=== PATIENT | male | born 1940 | race Caucasian/White ===

== ENCOUNTER 2021-11-12 12:33 | Inpatient (IN) | payer MEDICARE, OTHER ==
[~2021-11-12] VITALS: Ht 175.3 cm; Wt 100.7 kg
--- NOTE | 2021-11-12 13:16 | NUR ---
Gave pt lunch tray.
[2021-11-12] MEDS ORDERED: SIMV-49 PO (13:21)
[2021-11-12] MEDS ORDERED: RAMI10CA69 PO (13:21)
[2021-11-12] MEDS ORDERED: KETO45GE2 TP (13:21)
[2021-11-12] MEDS ORDERED: METO-356 PO (13:21)
[2021-11-12] MEDS ORDERED: FINA5TAB11 PO (13:21)
[2021-11-12] MEDS ORDERED: FURO-152 PO (13:21)
[2021-11-12] MEDS ORDERED: CLOP75TA15 PO (13:21)
[2021-11-12] MEDS ORDERED: ASCO250T23 PO (13:23)
--- NOTE | 2021-11-12 15:25 | NUR ---
Report called to JESSICA RN Addendum: 11/12/21 at 1530 by YO AURA Lynne
[2021-11-12] MEDS ORDERED: ACETAMINOPHEN 325 MG TABLET PO PRN (16:30)
[2021-11-12] MEDS ORDERED: MAG HYDROX/AL HYDROX/SIMETH 30 ML LIQUID UDC PO PRN (16:30)
[2021-11-12 16:42] VITALS: BP 141/90
--- NOTE | 2021-11-12 18:15 | NUR ---
GPS: PT ADMITTED TO THE UNIT, PLEASANT 81 YEAR OLD MALE. 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 PT FEARFUL TO BE HOME ALONE. PT IS DEPRESSED WITH FLAT AFFECT. IMPAIRED JUDGEMENT AND INSIGHT AND POOR IMPULSE CONTROL. UNABLE TO PROVIDE FOR HIS FOOD, HALFWAY AND CLOTHING DUE TO MENTAL DISORDER. UPON FACE TO FACE ASSESSMENT, PT IS ALERT AND ORIENTED X2-3, SKIN INTACT, ON FULL CODE AND NO KNOWN DRUG ALLERGY. PT WITH HISTORY OF HYPERTENSION, HYPERLIPIDEMIA, BPH AND ANXIETY. . PT 72 HR HOLD WILL BE EXPIRING ON 11/15 AT 1345. COVID NEGATIVE CHECK AT ER. PT HAD COVID VACCINE CARD ON SAFE AND HAD BEEN FULLY VACCINATED. PT DENIES PAIN OR DISCOMFORT. PT IS ADMITTED TO THE CARE OF DR CALLOWAY (PSYCHIATRIST) AND DR LANCASTER (STIFF STRAW HAT WASHER). ALL MD'S MADE AWARE. PT DENIES ANY SI/HI. ALL VALUABLES ACCOUNTED FOR AND PLACED IN SAFE.
[2021-11-12] MEDS: FUROSEMIDE 20 MG TABLET PO SCH (18:28)
[2021-11-12] MEDS: LORAZEPAM 0.5 MG TABLET PO PRN (18:32)
--- NOTE | 2021-11-12 19:27 | NUR ---
GPS: UPON BODY ASSESSMENT, PT HAVE NOTED WITH EDEMA ON BOTH LOWER EXTREMITIES. LEFT AND RIGHT FOOT AND TOES REDNESS, WOULD BE BENEFICIAL FOR A WOUND OR PODIATRY CONSULT TO RULE OUT CIRCULATION ISSUES. WILL ORDER CONSULT FOR PT. Addendum: 11/12/21 at 1934 by FRANCISCO JUAN RN REPORTED TO RESPIRATORY CARE PRACTITIONER REGARDING BOTH LOWER EXTREMITIES ISSUE, WILL WAIT FOR ORDER.
[2021-11-12 20:05] VITALS: BP 112/75
[2021-11-12] MEDS: SIMVASTATIN 40 MG TABLET PO SCH (20:46)
[2021-11-12] MEDS: TEMAZEPAM 7.5 MG CAPSULE PO PRN (20:55)
--- NOTE | 2021-11-13 06:20 | NUR ---
GPS: Pt.slept 7.30 last night. Anxious,confused,disoriented and needing frequent re-assurance and re-direction from staff. Reality re-orientation provided prn. Poor insight to present situation. Safe environment provided. Needs attended. Will continue to monitor.
[2021-11-13] MEDS: LORAZEPAM 0.5 MG TABLET PO PRN ×2 (06:26→17:27)
[2021-11-13 07:30] VITALS: BP 140/70
[2021-11-13 07:39] LABS: HEMATOCRIT 45.8 % (36.7-47.1); MEAN CORPUSCULAR HEMOGLOBIN 31.7 uug (23.8-33.4); MEAN CORPUSCULAR VOLUME 92.6 fL (73.0-96.2); PLATELET COUNT (AUTO) 210 K/uL (152-348)
[2021-11-13 08:21] LABS: THYROID STIMULATING HORMONE 1.03 mIU/mL (0.358-3.740)
[2021-11-13 08:27] LABS: BILIRUBIN,TOTAL 0.7 mg/dL (0.2-1.0); CREATININE 1.1 mg/dL (0.6-1.3); MAGNESIUM 2.4 mg/dL (1.8-2.4); PHOSPHOROUS 3.2 mg/dL (2.5-4.9)
[2021-11-13] MEDS: FINASTERIDE 5 MG TABLET PO SCH (08:35)
[2021-11-13] MEDS: FUROSEMIDE 20 MG TABLET PO SCH ×2 (08:35→17:27)
[2021-11-13] MEDS: ASCORBIC ACID 500 MG TABLET PO SCH (08:35)
[2021-11-13] MEDS: CLOPIDOGREL 75 MG TABLET PO SCH (08:35)
[2021-11-13] MEDS: RAMIPRIL 5 MG CAPSULE PO SCH (08:36)
[2021-11-13] MEDS: METOPROLOL SUCCINATE XL 25 MG TAB.SR.24H PO SCH (08:42)
[2021-11-13] MEDS ORDERED: ASCORBIC ACID 250 MG PO SCH (09:00)
--- NOTE | 2021-11-13 09:34 | NUR ---
GPS: PT SEEN IN THE ROOM, ALERT, BUT CONFUSED AND FORGETFUL. PT STATING "WHY AM I HERE?" RE-ORIENTED TO WHAT BROUGHT HIM HERE. COMPLIANT WITH MEDS ANC CARE. NO AGITATION OR ANXIOUSNESS NOTED AT THIS TIME.
[2021-11-13 16:00] VITALS: BP 129/68
[2021-11-13] MEDS: MAGNESIUM HYDROXIDE 30 ML LIQUID UDC PO PRN (17:46)
--- NOTE | 2021-11-13 17:51 | NUR ---
GPS: PT REQUESTED FOR AN ATIVAN, PT FEELS ANXIOUS WHILE IN THE TV ROOM WHEN ONE OF THE PT WAS BEING INTRUSIVE AND KEEP ON CLOSING THE DOOR. PT ALSO COMPLAINT OF HAVING A HARD TIME WITH BOWEL MOVEMENT, OFFERED MILK OF MAGNESIA AND TOLERATED WELL.
[2021-11-13 19:51] VITALS: BP 136/71
[2021-11-13] MEDS: SIMVASTATIN 40 MG TABLET PO SCH (20:02)
[2021-11-13] MEDS: risperiDONE 0.25 MG TABLET PO SCH (20:10)
[2021-11-13] MEDS: TEMAZEPAM 7.5 MG CAPSULE PO PRN (21:47)
[2021-11-14 07:30] VITALS: BP 161/74
[2021-11-14] MEDS: FUROSEMIDE 20 MG TABLET PO SCH ×2 (08:43→16:45)
[2021-11-14] MEDS: METOPROLOL SUCCINATE XL 25 MG TAB.SR.24H PO SCH (08:43)
[2021-11-14] MEDS: CLOPIDOGREL 75 MG TABLET PO SCH (08:43)
[2021-11-14] MEDS: risperiDONE 0.25 MG TABLET PO SCH (08:43)
[2021-11-14] MEDS: ASCORBIC ACID 500 MG TABLET PO SCH (08:43)
[2021-11-14] MEDS: FINASTERIDE 5 MG TABLET PO SCH (08:43)
[2021-11-14] MEDS: RAMIPRIL 5 MG CAPSULE PO SCH (08:44)
[2021-11-14] MEDS: DIVALPROEX 250 MG TABLET.DR PO SCH ×2 (09:22→20:58)
[2021-11-14] MEDS: LORAZEPAM 0.5 MG TABLET PO PRN ×2 (11:24→20:58)
--- NOTE | 2021-11-14 11:26 | NUR ---
GPS: PT ALERT AND VERBALLY RESPONSIVE BUT VERY CONFUSED DURING THE EARLY SHIFT. PT DOES NOT KNOW WHY HE IS HERE, AND WHY HIS CELLPHONE AND WALLET IS NOT WITH HIM. PT RE-ORIENTED WITH THE PLACE AND SITUATION THAT HE"S IN THE LOCKED-IN FACILITY. PT ATTENDED GROUP THERAPY AND ENJOYED SOME ACTIVITIES AT THE [facility]IO. PT HAD EPISODE OF ANXIOUSNESS AND REQUESTED FOR ATIVAN, GIVEN AND TOLERATED WELL. COMPLIANT WITH MEDS. WILL ENCOURAGE THE PT TO TAKE A SHOWER TODAY.
--- NOTE | 2021-11-14 11:47 | NUR ---
GPS: AT AROUND 1000, PT WAS NOT ABLE TO HAVE A CT-SCAN PT WAS CLAUSTROPHIC AND DOES NOT WANT TO RIDE THE ELEVATOR. OFFERED ATIVAN, PT STATED "IT WON'T WORK.
[2021-11-14] MEDS: risperiDONE 0.5 MG TABLET PO SCH ×2 (12:33→16:45)
[2021-11-14] MEDS ORDERED: risperiDONE 0.25 MG TABLET PO SCH (13:00)
--- NOTE | 2021-11-14 14:16 | NUR ---
AMBER Initial Discharge Note: Pt currently resides at [address] [place] [address]. AMBER will continue to work with pt, family and MD to ensure a safe and proper discharge plan. Pt is agreeable to a penitentiary facility placement upon discharge. AMBER will continue to communicate with family regarding pt's status and discharge plan.
[2021-11-14 16:00] VITALS: BP 132/69
[2021-11-14 20:39] VITALS: BP 133/71
[2021-11-14] MEDS: SIMVASTATIN 40 MG TABLET PO SCH (20:58)
[2021-11-14] MEDS: TEMAZEPAM 7.5 MG CAPSULE PO PRN (21:30)
--- NOTE | 2021-11-15 04:42 | NUR ---
GPS NOTES: Received in the day room watching tv, A&0x2, pleasant when greeted. Compliant with medication, able to make needs known. Noted with forgetfulness. Patient states to have anxiety, PRN ativan given. Restoril given as per patient requests. Patient sleeping intermittently. Closely monitoring observed.
[2021-11-15 07:30] VITALS: BP 133/83
[2021-11-15] MEDS: METOPROLOL SUCCINATE XL 25 MG TAB.SR.24H PO SCH (08:19)
[2021-11-15] MEDS: FUROSEMIDE 20 MG TABLET PO SCH ×2 (08:19→16:50)
[2021-11-15] MEDS: CLOPIDOGREL 75 MG TABLET PO SCH (08:19)
[2021-11-15] MEDS: ASCORBIC ACID 500 MG TABLET PO SCH (08:20)
[2021-11-15] MEDS: DIVALPROEX 250 MG TABLET.DR PO SCH ×3 (08:20→20:03)
[2021-11-15] MEDS: FINASTERIDE 5 MG TABLET PO SCH (08:20)
[2021-11-15] MEDS: RAMIPRIL 5 MG CAPSULE PO SCH (08:24)
[2021-11-15] MEDS: risperiDONE 0.5 MG TABLET PO SCH ×3 (08:30→16:50)
--- NOTE | 2021-11-15 10:03 | NUR ---
WOUND CARE CONSULT: PT SEEN FOR DRY SKIN TO LOWER LEGS AND SOME REDDISH DISCOLORATION TO FEET AND LOWER LEGS. DEFER TO PMD FOR DISCOLORATION. RECOMMENDATIONS MADE FOR SKIN DRYNESS. DISCUSSED WITH NURSING STAFF.MD IN AGREEMENT WITH PLAN OF CARE. PT IS AMBULATORY AND CONTINENT.
[2021-11-15] MEDS: MINERAL OIL/PETROLATUM,WHITE 57 GM TUBE TOP SCH (11:11)
--- NOTE | 2021-11-15 15:02 | NUR ---
Received patient sleeping in his room. A/O X 2 to person, place. Pt. is confused and forgetful "Can you please tell me what should I be doing?" Pt. is demanding, worried, and needs to be redirected. Cooperative with care and compliant with medications. Pt. is encourage to verbalize concerns. Fall and safety precautions implemented.
--- NOTE | 2021-11-15 15:25 | NUR ---
Firearms Report: Claims Adjuster Supervisor completed and submitted a [employer] firearms report for 5150 grave disability certifications. A copy of report has been placed in patient chart.
--- NOTE | 2021-11-15 16:15 | NUR ---
AMBER Family Contact: Pt's sister contacted AMBER and discussed pt's current status and discharge plan to [facility]. Pt's sister is aware and agreeable. AMBER stated this life insurance underwriter will contact pt's son, Mike and discuss the discharge plan with him next week.
[2021-11-15 16:32] VITALS: BP 147/83
[2021-11-15] MEDS: SIMVASTATIN 40 MG TABLET PO SCH (20:03)
[2021-11-15 20:10] VITALS: BP 123/78
[2021-11-15] MEDS: TEMAZEPAM 7.5 MG CAPSULE PO PRN (23:39)
--- NOTE | 2021-11-16 06:11 | NUR ---
GPS: Pt.slept 5.45 last night. Remains confused,forgetful and anxious at times. Re-assured and re-directed prn. Safety emphasized. Will continue to monitor.
[2021-11-16 07:30] VITALS: BP 162/84
[2021-11-16] MEDS: RAMIPRIL 5 MG CAPSULE PO SCH (08:28)
[2021-11-16] MEDS: risperiDONE 0.5 MG TABLET PO SCH ×3 (08:29→17:17)
[2021-11-16] MEDS: METOPROLOL SUCCINATE XL 25 MG TAB.SR.24H PO SCH (08:29)
[2021-11-16] MEDS: ASCORBIC ACID 500 MG TABLET PO SCH (08:29)
[2021-11-16] MEDS: FUROSEMIDE 20 MG TABLET PO SCH ×2 (08:29→17:17)
[2021-11-16] MEDS: CLOPIDOGREL 75 MG TABLET PO SCH (08:30)
[2021-11-16] MEDS: DIVALPROEX 250 MG TABLET.DR PO SCH ×3 (08:30→20:20)
[2021-11-16] MEDS: FINASTERIDE 5 MG TABLET PO SCH (08:30)
[2021-11-16] MEDS: MINERAL OIL/PETROLATUM,WHITE 57 GM TUBE TOP SCH (08:31)
[2021-11-16] MEDS ORDERED: MIRALAX 17 GM POWD.PACK PO ONE (14:00)
[2021-11-16] MEDS: LORAZEPAM 0.5 MG TABLET PO PRN (14:11)
--- NOTE | 2021-11-16 14:13 | NUR ---
Patient is given Miralax for constipation at 14:08, and Ativan 0.5 mg for anxiety at 14:10, will be monitored for effectiveness.
--- NOTE | 2021-11-16 14:59 | NUR ---
Received patient sleeping in his room. A/O X 2 to person, place. Pt. is sociable, pleasant, forgetful "Please don't let me miss any meals" "Where should I go now?" Pt. is compliant with medications. Pt. is encourage to verbalize concerns. Fall and safety precautions implemented.
[2021-11-16 16:07] VITALS: BP 132/73
[2021-11-16 19:53] VITALS: BP 117/56
[2021-11-16] MEDS: SIMVASTATIN 40 MG TABLET PO SCH (20:20)
[2021-11-17] MEDS: MAGNESIUM HYDROXIDE 30 ML LIQUID UDC PO PRN (06:44)
[2021-11-17 07:30] VITALS: BP 130/60
[2021-11-17] MEDS: RAMIPRIL 5 MG CAPSULE PO SCH (08:16)
[2021-11-17] MEDS: METOPROLOL SUCCINATE XL 25 MG TAB.SR.24H PO SCH (08:16)
[2021-11-17] MEDS: DIVALPROEX 250 MG TABLET.DR PO SCH ×3 (08:17→20:41)
[2021-11-17] MEDS: MINERAL OIL/PETROLATUM,WHITE 57 GM TUBE TOP SCH (08:17)
[2021-11-17] MEDS: CLOPIDOGREL 75 MG TABLET PO SCH (08:17)
[2021-11-17] MEDS: FINASTERIDE 5 MG TABLET PO SCH (08:17)
[2021-11-17] MEDS: ASCORBIC ACID 500 MG TABLET PO SCH (08:17)
[2021-11-17] MEDS: FUROSEMIDE 20 MG TABLET PO SCH ×2 (08:17→17:19)
[2021-11-17] MEDS: risperiDONE 0.5 MG TABLET PO SCH ×3 (08:17→17:19)
[2021-11-17] MEDS ORDERED: FLEET ENEMA 133 ML BOTTLE RC ONE (12:45)
--- NOTE | 2021-11-17 13:56 | NUR ---
Patient states "It has been couple of days that I don't got to the bathroom for number two" Patient has been given Miralax and Milk of Magnesium previously with no results. Hyperion Analyst ordered Fleet Enema, it was effective.
--- NOTE | 2021-11-17 15:07 | NUR ---
Received patient awake in his room. A/O X 2 to person, place. Pt. is confused, disorganized, forgetful "What am I suppose to do now?" Pt. needs to be redirected and reminded of simple tasks. Patient is very worried about forgetting things and writes everything down, but even when he's reading his own writing he cannot understand concepts and words meaning, and asks questions about the notes. Pt. is very cooperative with nursing care and compliant with medications. Active listening provided. Fall and safety precautions implemented.
[2021-11-17 16:00] VITALS: BP 92/58
[2021-11-17 19:45] VITALS: BP 116/62
[2021-11-17] MEDS: SIMVASTATIN 40 MG TABLET PO SCH (20:41)
--- NOTE | 2021-11-17 21:00 | NUR ---
Received patient in the day room watching T.V. He is noted A/O x 1 to 2. he is noted forgetful at time. However, when ask why he was in the MHU, he stated, "I am here because I have problems with my memory". patient is calm and compliant with his medication regiment diet and care. V/S are stable. He was given PO fluids and snacks. Patient is reassured for his safety. Safety and fall precautions are in place. will continue to monitor.
[2021-11-17] MEDS: TEMAZEPAM 7.5 MG CAPSULE PO PRN (23:49)
--- NOTE | 2021-11-17 23:50 | NUR ---
Patient noted awake unable to fall asleep. He is noted preoccupied about his hospital stay. he started, "I don't know how I am going to pay for this. I want to talk to my son and daughter about my finances". Patient was reassured and redirected. He was also given Temazepam 7.5mg PO PRN. will continue to monitor.
--- NOTE | 2021-11-18 06:54 | NUR ---
Patient slept for approx 4,45 hrs through the night. He is noted forgetful. He requires constant re-orientation and reality checks. He is redirectable and he is complaint with medication regiment diet and plan of care .
[2021-11-18 07:35] VITALS: BP 155/75
[2021-11-18] MEDS: DIVALPROEX 250 MG TABLET.DR PO SCH ×3 (08:32→21:26)
[2021-11-18] MEDS: RAMIPRIL 5 MG CAPSULE PO SCH (08:32)
[2021-11-18] MEDS: METOPROLOL SUCCINATE XL 25 MG TAB.SR.24H PO SCH (08:33)
[2021-11-18] MEDS: FINASTERIDE 5 MG TABLET PO SCH (08:33)
[2021-11-18] MEDS: risperiDONE 0.5 MG TABLET PO SCH ×3 (08:33→17:26)
[2021-11-18] MEDS: ASCORBIC ACID 500 MG TABLET PO SCH (08:33)
[2021-11-18] MEDS: FUROSEMIDE 20 MG TABLET PO SCH ×2 (08:33→17:26)
[2021-11-18] MEDS: MINERAL OIL/PETROLATUM,WHITE 57 GM TUBE TOP SCH (08:34)
[2021-11-18] MEDS: CLOPIDOGREL 75 MG TABLET PO SCH (08:34)
--- NOTE | 2021-11-18 14:38 | NUR ---
Received patient Confused,disoriented and forgetful. Re-assured and re-directed frequently due to increased confusion. Denies SI/HI. Safe environment provided. Med.compliant.
[2021-11-18 16:10] VITALS: BP 107/66
[2021-11-18 19:50] VITALS: BP 118/61
[2021-11-18] MEDS: SIMVASTATIN 40 MG TABLET PO SCH (21:26)
--- NOTE | 2021-11-18 21:46 | NUR ---
Patient received in the activities room watching television and interacting with his peers.He is noted A/O x 1-2. Patient is forgetful at times, redirected as needed. patient is calm and compliant with his medication. Safety measures rendered, bed in lowest position, bed locked, and bed alarm on while in bed.
[2021-11-19] MEDS: TEMAZEPAM 7.5 MG CAPSULE PO PRN ×2 (00:01→23:35)
[2021-11-19 07:30] VITALS: BP 135/77
[2021-11-19 07:53] LABS: HEMATOCRIT 41.2 % (36.7-47.1); MEAN CORPUSCULAR HEMOGLOBIN 31.9 uug (23.8-33.4); MEAN CORPUSCULAR VOLUME 92.7 fL (73.0-96.2); PLATELET COUNT (AUTO) 165 K/uL (152-348)
[2021-11-19 08:07] LABS: BILIRUBIN,TOTAL 0.4 mg/dL (0.2-1.0); POTASSIUM 4.1 mmol/L (3.5-5.1); TOTAL PROTEIN, SERUM 6.4 g/dL (6.4-8.2)
[2021-11-19] MEDS: CLOPIDOGREL 75 MG TABLET PO SCH (08:31)
[2021-11-19] MEDS: METOPROLOL SUCCINATE XL 25 MG TAB.SR.24H PO SCH (08:31)
[2021-11-19] MEDS: risperiDONE 0.5 MG TABLET PO SCH ×3 (08:31→16:13)
[2021-11-19] MEDS: FUROSEMIDE 20 MG TABLET PO SCH ×2 (08:31→16:13)
[2021-11-19] MEDS: RAMIPRIL 5 MG CAPSULE PO SCH (08:31)
[2021-11-19] MEDS: FINASTERIDE 5 MG TABLET PO SCH (08:32)
[2021-11-19] MEDS: DIVALPROEX 250 MG TABLET.DR PO SCH ×2 (08:32→12:33)
[2021-11-19] MEDS: ASCORBIC ACID 500 MG TABLET PO SCH (08:32)
[2021-11-19] MEDS: MINERAL OIL/PETROLATUM,WHITE 57 GM TUBE TOP SCH (08:34)
--- NOTE | 2021-11-19 09:22 | NUR ---
AMBER Discharge Update: Pt is accepted to [facility] [address] [facility] [address] ([phone]) upon discharge. SW spoke to Shar ([phone]) at the facility who confirmed the pt's acceptance. AMBER will follow-up with pt's family regarding discharge details of acceptance.
--- NOTE | 2021-11-19 11:02 | NUR ---
PT [facility] 14 DAY HOLD HEARING DONE TODAY AND WITH APPROVE PROBABLE CAUSE OF GRAVE DISABILITY ONLY. PT DID NOT PARTICIPATE WITH THE HEARING.
[2021-11-19 15:11] VITALS: BP 106/62
--- NOTE | 2021-11-19 16:08 | NUR ---
AMBER Family Contact: AMBER contacted pt's son, Mike [phone] and discussed pt's acceptance to [facility] [address] [facility] [address] confirmed by Shar ([phone]) upon discharge. AMBER provided facility address and contact information to Mike. Mike stated he is agreeable an grateful for the help. AMBER stated she will follow-up with family again with pt status and discharge day details.
--- NOTE | 2021-11-19 16:08 | NUR ---
AMBER Discharge Update: Pt will discharge to [facility] [address] [facility] [address] confirmed by Shar ([phone]) upon discharge. AMBER provided facility address and contact information to pt's son, Mike. Mike stated he is agreeable an grateful for the help.
[2021-11-19] MEDS: LORAZEPAM 0.5 MG TABLET PO PRN (16:13)
--- NOTE | 2021-11-19 16:28 | NUR ---
patient c/o anxiety Ativan 0.5 mg given as ordered will continue close monitoring.
[2021-11-19 19:47] VITALS: BP 136/70
--- NOTE | 2021-11-19 20:24 | NUR ---
Patient received in the activities room watching television and interacting with his peers.He is noted A/O x 1-2. Patient is forgetful at times, redirected as needed. patient is calm and compliant with his medication.Safety measures rendered, bed in lowest position, bed locked, and bed alarm on while in bed.
[2021-11-19] MEDS: DIVALPROEX 500 MG TABLET.DR PO SCH (20:55)
[2021-11-19] MEDS: SIMVASTATIN 40 MG TABLET PO SCH (20:55)
[2021-11-20 07:30] VITALS: BP 156/76
[2021-11-20] MEDS: FUROSEMIDE 20 MG TABLET PO SCH ×2 (08:42→16:50)
[2021-11-20] MEDS: CLOPIDOGREL 75 MG TABLET PO SCH (08:42)
[2021-11-20] MEDS: DIVALPROEX 250 MG TABLET.DR PO SCH ×2 (08:42→12:02)
[2021-11-20] MEDS: risperiDONE 0.5 MG TABLET PO SCH ×2 (08:42→16:50)
[2021-11-20] MEDS: FINASTERIDE 5 MG TABLET PO SCH (08:42)
[2021-11-20] MEDS: ASCORBIC ACID 500 MG TABLET PO SCH (08:42)
[2021-11-20] MEDS: RAMIPRIL 5 MG CAPSULE PO SCH (08:45)
[2021-11-20] MEDS: MINERAL OIL/PETROLATUM,WHITE 57 GM TUBE TOP SCH (08:46)
[2021-11-20] MEDS: METOPROLOL SUCCINATE XL 25 MG TAB.SR.24H PO SCH (08:46)
--- NOTE | 2021-11-20 14:50 | NUR ---
Received patient Confused,disoriented and forgetful.stay in TV room watching TV with other peers, Re-assured and re-directed frequently due to increased confusion. Denies SI/HI. Safe environment provided. Med.compliant.
[2021-11-20 16:00] VITALS: BP 150/62
[2021-11-20 20:00] VITALS: BP 124/68
[2021-11-20] MEDS: risperiDONE 1 MG TABLET PO SCH (20:11)
[2021-11-20] MEDS: SIMVASTATIN 40 MG TABLET PO SCH (20:12)
[2021-11-20] MEDS: DIVALPROEX 500 MG TABLET.DR PO SCH (20:12)
[2021-11-20] MEDS: TEMAZEPAM 7.5 MG CAPSULE PO PRN (21:07)
--- NOTE | 2021-11-21 04:06 | NUR ---
GPS NOTES: Received in the day room watching tv, A&0x2. Ambulatory with steady gait. Compliant with medication, able to make needs known. No significant behavioral changes noted. Noted with forgetfulness. Restoril given as per patient requests. Patient sleeping well. Closely monitoring observed. safety in place,
[2021-11-21 07:44] VITALS: BP 154/92
[2021-11-21] MEDS: CLOPIDOGREL 75 MG TABLET PO SCH (09:06)
[2021-11-21] MEDS: FINASTERIDE 5 MG TABLET PO SCH (09:06)
[2021-11-21] MEDS: DIVALPROEX 250 MG TABLET.DR PO SCH ×2 (09:06→12:15)
[2021-11-21] MEDS: FUROSEMIDE 20 MG TABLET PO SCH ×2 (09:06→16:08)
[2021-11-21] MEDS: ASCORBIC ACID 500 MG TABLET PO SCH (09:06)
[2021-11-21] MEDS: MINERAL OIL/PETROLATUM,WHITE 57 GM TUBE TOP SCH (09:07)
[2021-11-21] MEDS: risperiDONE 0.5 MG TABLET PO SCH ×2 (09:11→16:08)
[2021-11-21] MEDS: RAMIPRIL 5 MG CAPSULE PO SCH (10:02)
[2021-11-21] MEDS: METOPROLOL SUCCINATE XL 25 MG TAB.SR.24H PO SCH (10:03)
--- NOTE | 2021-11-21 12:56 | NUR ---
Gps/Dock Manager- Stayed in the activity room during lunch. Complained of lower back pain instructed to lay down in bed to rest his back, tylenol 650 mg po, verbalized adequate relief. Interacting with selected peers. ,forgetful , redirectable.
[2021-11-21 16:18] VITALS: BP 156/66
[2021-11-21] MEDS: risperiDONE 1 MG TABLET PO SCH (20:29)
[2021-11-21] MEDS: SIMVASTATIN 40 MG TABLET PO SCH (20:29)
[2021-11-21] MEDS: DIVALPROEX 500 MG TABLET.DR PO SCH (20:29)
--- NOTE | 2021-11-21 20:30 | NUR ---
Received patient in the day room watching TV. He is noted A/O x 1 forgetful at time. but calm, pleasant and cooperative upon approached. He is complaint with his [facility] medication regiment.he denied SI/HI/VH/AH.he is able to verbally CFS. He was given PO fluids and snacks. V/S are stable. patient is reassured for his safety. safety and fall precaution are in place. will continue to monitor.
[2021-11-22 07:38] VITALS: BP 126/77
[2021-11-22] MEDS: FUROSEMIDE 20 MG TABLET PO SCH ×2 (08:13→16:55)
[2021-11-22] MEDS: CLOPIDOGREL 75 MG TABLET PO SCH (08:13)
[2021-11-22] MEDS: DIVALPROEX 250 MG TABLET.DR PO SCH ×2 (08:13→12:28)
[2021-11-22] MEDS: FINASTERIDE 5 MG TABLET PO SCH (08:13)
[2021-11-22] MEDS: ASCORBIC ACID 500 MG TABLET PO SCH (08:13)
[2021-11-22] MEDS: METOPROLOL SUCCINATE XL 25 MG TAB.SR.24H PO SCH (08:16)
[2021-11-22] MEDS: RAMIPRIL 5 MG CAPSULE PO SCH (08:16)
[2021-11-22] MEDS: risperiDONE 0.5 MG TABLET PO SCH ×2 (08:19→16:55)
[2021-11-22] MEDS: MINERAL OIL/PETROLATUM,WHITE 57 GM TUBE TOP SCH (08:33)
[2021-11-22 16:57] VITALS: BP 128/82
[2021-11-22] MEDS: risperiDONE 1 MG TABLET PO SCH (20:08)
[2021-11-22] MEDS: SIMVASTATIN 40 MG TABLET PO SCH (20:08)
[2021-11-22] MEDS: DIVALPROEX 500 MG TABLET.DR PO SCH (20:08)
[2021-11-22] MEDS: MEMANTINE HCL 5 MG TABLET PO SCH (20:08)
[2021-11-22 20:38] VITALS: BP 125/75
[2021-11-22] MEDS: TEMAZEPAM 7.5 MG CAPSULE PO PRN (20:48)
[2021-11-23 07:46] VITALS: BP 148/71
[2021-11-23] MEDS: ASCORBIC ACID 500 MG TABLET PO SCH (08:31)
[2021-11-23] MEDS: risperiDONE 0.5 MG TABLET PO SCH ×2 (08:31→16:26)
[2021-11-23] MEDS: FUROSEMIDE 20 MG TABLET PO SCH ×2 (08:31→16:26)
[2021-11-23] MEDS: DIVALPROEX 250 MG TABLET.DR PO SCH ×2 (08:31→12:31)
[2021-11-23] MEDS: RAMIPRIL 5 MG CAPSULE PO SCH (08:31)
[2021-11-23] MEDS: CLOPIDOGREL 75 MG TABLET PO SCH (08:31)
[2021-11-23] MEDS: FINASTERIDE 5 MG TABLET PO SCH (08:31)
[2021-11-23] MEDS: MEMANTINE HCL 5 MG TABLET PO SCH ×2 (08:31→20:04)
[2021-11-23] MEDS: METOPROLOL SUCCINATE XL 25 MG TAB.SR.24H PO SCH (08:32)
[2021-11-23] MEDS: MINERAL OIL/PETROLATUM,WHITE 57 GM TUBE TOP SCH (08:32)
--- NOTE | 2021-11-23 13:07 | NUR ---
GPS: Nursing Notes: Thought Disorder: Patient is awake and responding to his name, cooperative with nursing care, less anxious, A/Ox2-3, compliant with his medications, believes that his medications are working for him, participating in therapeutic groups, unable to formulate a viable plan for self care, needs prompting with ADL's, continue to monitor for safety, unkempt appearance, continue with treatment plan.
[2021-11-23 16:02] VITALS: BP 151/52
[2021-11-23 20:00] VITALS: BP 116/68
[2021-11-23] MEDS: DIVALPROEX 500 MG TABLET.DR PO SCH (20:04)
[2021-11-23] MEDS: risperiDONE 1 MG TABLET PO SCH (20:04)
[2021-11-23] MEDS: SIMVASTATIN 40 MG TABLET PO SCH (20:26)
[2021-11-23] MEDS: TEMAZEPAM 7.5 MG CAPSULE PO PRN (21:13)
--- NOTE | 2021-11-24 06:42 | NUR ---
GPS: Pt. slept 6.75 last night. No new behavioral problems exhibited. Reality re-orientation provided prn. Safety emphasized. Will continue to monitor.
[2021-11-24 07:31] VITALS: BP 113/50
[2021-11-24] MEDS: FUROSEMIDE 20 MG TABLET PO SCH ×2 (08:39→16:27)
[2021-11-24] MEDS: FINASTERIDE 5 MG TABLET PO SCH (08:39)
[2021-11-24] MEDS: CLOPIDOGREL 75 MG TABLET PO SCH (08:39)
[2021-11-24] MEDS: risperiDONE 0.5 MG TABLET PO SCH ×2 (08:39→16:27)
[2021-11-24] MEDS: ASCORBIC ACID 500 MG TABLET PO SCH (08:39)
[2021-11-24] MEDS: MEMANTINE HCL 5 MG TABLET PO SCH ×2 (08:39→20:09)
[2021-11-24] MEDS: DIVALPROEX 250 MG TABLET.DR PO SCH ×2 (08:39→12:33)
[2021-11-24] MEDS: RAMIPRIL 5 MG CAPSULE PO SCH (08:41)
[2021-11-24] MEDS: METOPROLOL SUCCINATE XL 25 MG TAB.SR.24H PO SCH (08:42)
[2021-11-24] MEDS: MINERAL OIL/PETROLATUM,WHITE 57 GM TUBE TOP SCH (08:43)
--- NOTE | 2021-11-24 10:48 | NUR ---
GPS: Nursing Notes: Thought Disorder: Patient is awake and responding to his name, cooperative with nursing care, compliant with his medications, less anxious when interacting with staff, A/Ox2, redirected and reoriented during shift, needs minimal prompting to participate in therapeutic groups, needs minimal assistance with ADL's, unable to formulate a viable plan for self care, continue to monitor for safety, continue with treatment plan.
[2021-11-24 16:14] VITALS: BP 130/75
[2021-11-24 19:53] VITALS: BP 126/60
[2021-11-24] MEDS: risperiDONE 1 MG TABLET PO SCH (20:10)
[2021-11-24] MEDS: DIVALPROEX 500 MG TABLET.DR PO SCH (20:10)
[2021-11-24] MEDS: SIMVASTATIN 40 MG TABLET PO SCH (20:10)
[2021-11-24] MEDS: TEMAZEPAM 7.5 MG CAPSULE PO PRN (21:32)
[2021-11-25 07:38] VITALS: BP 127/80
[2021-11-25] MEDS: DIVALPROEX 250 MG TABLET.DR PO SCH ×2 (08:46→13:10)
[2021-11-25] MEDS: CLOPIDOGREL 75 MG TABLET PO SCH (08:47)
[2021-11-25] MEDS: risperiDONE 0.5 MG TABLET PO SCH ×2 (08:47→17:06)
[2021-11-25] MEDS: ASCORBIC ACID 500 MG TABLET PO SCH (08:47)
[2021-11-25] MEDS: FUROSEMIDE 20 MG TABLET PO SCH ×2 (08:47→17:05)
[2021-11-25] MEDS: RAMIPRIL 5 MG CAPSULE PO SCH (08:47)
[2021-11-25] MEDS: FINASTERIDE 5 MG TABLET PO SCH (08:47)
[2021-11-25] MEDS: METOPROLOL SUCCINATE XL 25 MG TAB.SR.24H PO SCH (08:48)
[2021-11-25] MEDS: MINERAL OIL/PETROLATUM,WHITE 57 GM TUBE TOP SCH (08:49)
[2021-11-25] MEDS: MEMANTINE HCL 5 MG TABLET PO SCH ×2 (08:51→21:04)
--- NOTE | 2021-11-25 15:51 | NUR ---
AMBER Family Contact: SW contacted pt's son, Mike [phone] and was not able to leave a voicemail regarding pt's discharge on Thursday the 2021 due to mailbox full to [facility] [place] [facility] [address] [facility] [address] confirmed by Shar ([phone]).
--- NOTE | 2021-11-25 15:59 | NUR ---
GPS: Nursing Notes: Thought Disorder: Patient is awake and responding to his name, forgetful at times, participating in therapeutic groups, compliant with his medications, less anxious, believes that the medications are helping him, following staff directions, unable to formulate a viable plan for self care, unkempt appearance, continue to monitor for safety, continue with treatment plan.
[2021-11-25 16:32] VITALS: BP 97/59
[2021-11-25 19:48] VITALS: BP 136/64
[2021-11-25] MEDS: DIVALPROEX 500 MG TABLET.DR PO SCH (21:04)
[2021-11-25] MEDS: TEMAZEPAM 7.5 MG CAPSULE PO PRN (21:04)
[2021-11-25] MEDS: SIMVASTATIN 40 MG TABLET PO SCH (21:04)
[2021-11-25] MEDS: risperiDONE 1 MG TABLET PO SCH (21:04)
[2021-11-26 06:58] LABS: HEMATOCRIT 44.6 % (36.7-47.1); MEAN CORPUSCULAR HEMOGLOBIN 31.5 uug (23.8-33.4); MEAN CORPUSCULAR VOLUME 93.1 fL (73.0-96.2); PLATELET COUNT (AUTO) 157 K/uL (152-348)
[2021-11-26 07:13] LABS: BILIRUBIN,TOTAL 0.5 mg/dL (0.2-1.0); TOTAL PROTEIN, SERUM 6.9 g/dL (6.4-8.2)
[2021-11-26 07:30] VITALS: BP 137/62
[2021-11-26] MEDS: FINASTERIDE 5 MG TABLET PO SCH (09:22)
[2021-11-26] MEDS: METOPROLOL SUCCINATE XL 25 MG TAB.SR.24H PO SCH (09:22)
[2021-11-26] MEDS: DIVALPROEX 250 MG TABLET.DR PO SCH (09:22)
[2021-11-26] MEDS: risperiDONE 0.5 MG TABLET PO SCH (09:22)
[2021-11-26] MEDS: FUROSEMIDE 20 MG TABLET PO SCH (09:22)
[2021-11-26] MEDS: MEMANTINE HCL 5 MG TABLET PO SCH (09:22)
[2021-11-26 09:23] VITALS: BP 137/62
[2021-11-26] MEDS: MINERAL OIL/PETROLATUM,WHITE 57 GM TUBE TOP SCH (09:23)
[2021-11-26] MEDS: CLOPIDOGREL 75 MG TABLET PO SCH (09:23)
[2021-11-26] MEDS: RAMIPRIL 5 MG CAPSULE PO SCH (09:23)
[2021-11-26] MEDS: ASCORBIC ACID 500 MG TABLET PO SCH (09:23)
--- NOTE | 2021-11-26 09:35 | NUR ---
AMBER Family Contact: SW contacted pt's son, Mike [phone] and was not able to leave a voicemail again regarding pt's discharge for today, the 2021 due to mailbox full to [facility] [place] [facility] [address] [facility] [address]. Pt has been previously informed of the discharge details and was agreeable.
--- NOTE | 2021-11-26 09:36 | NUR ---
AMBER Family Contact: SW contacted pt's son, Mike [phone] and was not able to leave a voicemail again regarding pt's discharge for today, the 2021 due to mailbox full to [facility] [address]. Pt's son, Mike has been previously informed of the discharge details and was aware and agreeable.
--- NOTE | 2021-11-26 09:49 | NUR ---
AMBER Discharge Note: Pt will be discharged to [facility] [address] [place] [address] ([phone]) via Ambulance transportation at 12PM. AMBER spoke with admin coordinator, Shar at the facility who states they are ready to accept the patient today. Pt is aware and agreeable with discharge plans. Pt's son, Mike [phone] is aware and agreeable with the discharge plan. Pt is alert and oriented x2(name and place), is unable to plan for self-care at this time; however, is willing to accept care at SNF. Pt denies any suicidal or homicidal ideation. Pt will follow-up at the facility with Psychiatrist, Dr. Wheeler and Assistant Property Manager, Dr. Carpio. Pt presents with calm mood and congruent affect. PHARMACY: [facility] ([phone]) [address] [place] [address].
--- NOTE | 2021-11-26 11:23 | NUR ---
AMBER Family Contact Update: Pt's son, Mike ([phone]) returned SW's call. SW explained the discharge for the pt today at 1PM. Mike is aware and agreeable. Mike has the discharge details provided by this SW and he is aware and agreeable.
--- NOTE | 2021-11-26 12:30 | NUR ---
GPS: Nursing Notes: Discharge Notes: Patient is awake and responding to his name, cooperative with nursing care, compliant with his medications, following staff directions, participating in therapeutic groups, denies SI/HI, denies AH/VH, denies pain or discomfort, denies SOB, discharge to [facility] [place] [address] [place], [place] [id number] . report given to facility's nurse - AURA Knight repair department supervisor, transported to facility via ambulance, took all his belongings and valuables with him. Patient's son - Mike informed of discharge by social welfare research worker. Facility needs to follow up with Dr. Wheeler (psychiatrist) and Dr. Carpio (apartment community manager) for aftercare at the facility.
== END 2021-11-26 12:30 | DRG 885 ==
LOC: ER 12:33 → GPS 15:28
PROVIDERS: ADMIT Psychiatry & Neurology Psychosomatic Medicine; ATTEND Nurse Practitioner Family
DX: F25.0 Schizoaffective disorder, bipolar type (principal); F01.50 Vascular dementia, unspecified severity, without behavioral disturbance, psychotic disturbance, mood disturbance, and anxiety; I10 Essential (primary) hypertension; Z79.02 Long term (current) use of antithrombotics/antiplatelets; F03.90 Unspecified dementia, unspecified severity, without behavioral disturbance, psychotic disturbance, mood disturbance, and anxiety; F41.9 Anxiety disorder, unspecified; K59.00 Constipation, unspecified; N40.0 Benign prostatic hyperplasia without lower urinary tract symptoms; Z87.891 Personal history of nicotine dependence; Z73.6 Limitation of activities due to disability; F29 Unspecified psychosis not due to a substance or known physiological condition; Z20.822 Contact with and (suspected) exposure to COVID-19
CPT/HCPCS: 36415; 70450; 80164; 83735; 84100; 84443; 85025; 97161; A4663; J3490